=== PATIENT | male | born 1970 | race Caucasian/White ===

== ENCOUNTER 2021-07-31 07:51 | Day surgery (SDC) | payer MEDICAID ==
[2021-07-22 11:33] LABS: BASOPHILS % (AUTO) 0.2 % (0-1); EOSINOPHILS # (AUTO) 0.1 X10'3 (0-0.9); EOSINOPHILS % (AUTO) 1.4 % (0-6); LYMPHOCYTES # (AUTO) 1.9 X10'3 (1.1-4.8); LYMPHOCYTES % (AUTO) 41.6 % (21-51); MEAN CORPUSCULAR HEMOGLOBIN 31.7 PG (27.0-31.0); MEAN CORPUSCULAR HGB CONC 33.5 g/dL (33.0-36.5); MEAN CORPUSCULAR VOLUME 94.6 FL (78-98); MEAN PLATELET VOLUME 7.4 FL (7.4-10.4); MONOCYTES # (AUTO) 0.4 X10'3 (0-0.9); MONOCYTES % (AUTO) 8.8 % (2-12); NEUTROPHILS # (AUTO) 2.2 X10'3 (1.8-7.7); PRE OP HEMATOCRIT 46.8 % (42.0-52.0); PRE OP HEMOGLOBIN 15.7 g/dL (14.0-17.9); PRE OP PLATELET COUNT 227 X10'3 (140-440); RED BLOOD COUNT 4.94 X10'6 (4.70-6.10); RED CELL DISTRIBUTION WIDTH 12.7 % (11.5-14.5)
[2021-07-22 11:49] LABS: ALBUMIN 3.9 G/DL (3.4-5.0); ALBUMIN/GLOBULIN RATIO 1.2 (1.1-1.5); ALKALINE PHOSPHATASE 74 IU/L (46-116); BLOOD UREA NITROGEN 12 MG/DL (7-18); BUN/CREATININE RATIO 17.9 (5.4-32.0); CALCIUM 8.6 MG/DL (8.5-10.1); CHLORIDE 107 MMOL/L (99-107); CREATININE 0.67 MG/DL (0.60-1.10); PRE OP ALT 53 U/L (30-65); PRE OP ANION GAP 9 (8-16); PRE OP AST 26 U/L (10-37); PRE OP BILIRUB, TOTAL 0.4 MG/DL (0.0-1.0); PRE OP GLUCOSE 93 MG/DL (70-104); PRE OP POTASSIUM 4.2 MMOL/L (3.4-5.1); PRE OP SODIUM 142 MMOL/L (135-145); TOTAL CARBON DIOXIDE 26.2 MMOL/L (24-32); TOTAL PROTEIN 7.2 G/DL (6.4-8.2); eGFR > 90 ML/MIN
[2021-07-31] VITALS (22 sets, daily range): BP systolic 101–141; BP diastolic 62–96
[~2021-07-31] VITALS: Ht 175.3 cm; Wt 74.0 kg
[~2021-07-31 07:51] MED LIST: NO HOME MEDS; ceFAZolin inj. 2,000 MG in dextrose 5%-water 100 ML IV ONE; ceFOXitin 2GM-NS 100mL ADDvant 100 ML IV ONE; famotidine 20mg tablet PO ONE; ringers solution, lacted 1,000 ML IV SCH
[2021-07-31] MEDS ORDERED: ROPIVAcaine 0.5% (5mg/ml) 30ml vial ONE (09:40)
[2021-07-31] MEDS ORDERED: gelatin sponge, absorbable (Gelfoam 100) sponge TP ONE (11:23)
[2021-07-31] MEDS ORDERED: Thrombin (Bovine) 5,000 unit vial TP ONE (11:23)
[2021-07-31] MEDS ORDERED: sevoflurane 250ml liquid IH ONE (11:28)
[2021-07-31] MEDS ORDERED: dexamethasone sod phosphate 10mg/ml inj ONE (11:28)
[2021-07-31] MEDS ORDERED: fentaNYL/PF 50MCG/1 ML 2ML syringe ONE (11:33)
[2021-07-31] MEDS ORDERED: propofol inj 20 ML IV ONE (11:37)
[2021-07-31] MEDS ORDERED: ondansetron/PF 4mg/2ml inj ONE (11:37)
[2021-07-31] MEDS ORDERED: LIDOcaine 2% (20mg/ml) 5ml vial ONE (11:37)
[2021-07-31] MEDS ORDERED: ondansetron/PF 4mg/2ml inj IV PRN (12:15)
[2021-07-31] MEDS ORDERED: fentaNYL/PF 50MCG/1 ML 2ML syringe IV PRN (12:15)
[2021-07-31] MEDS ORDERED: labetalol 20mg/4ml (5mg/ml) syringe IV PRN (12:15)
[2021-07-31] MEDS ORDERED: ringers solution, lacted 1,000 ML IV SCH (12:15)
[2021-07-31] MEDS ORDERED: hydrALAZINE 20mg/ml inj. IV PRN (12:15)
[2021-07-31] MEDS ORDERED: morphine 2 MG/ML inj. syringe IV PRN (12:15)
[2021-07-31] MEDS ORDERED: vancomycin 1,000mg inj ONE (13:48)
[2021-07-31] MEDS ORDERED: ceFAZolin 1000mg inj IR ONE (13:51)
--- NOTE | 2021-07-31 14:32 | NUR ---
Received from OR via [facility], accompanied by Anesthesiologist DR CHILDRESS and report given by Anesthesiologist AND LABORATORY CHIEF. PT DROWSY, DENIES PAIN. RIGHT LEG IN BRACE W/JOCE WRAP FROM TOES TO ABOVE KNEE COVERING INCISION CDI. Addendum: 07/31/21 at 1615 by Betty Mayers RN Amended: Links added.
[2021-07-31] MEDS: morphine 4 MG/ML inj SYRINge IV PRN ×2 (14:42→17:06)
[2021-07-31] MEDS: fentaNYL/PF 50MCG/1 ML 2ML syringe IV PRN ×3 (15:06→15:11)
[2021-07-31] MEDS: diazepam inj 5 MG/ML inj. IV ONE (15:33)
--- NOTE | 2021-07-31 15:33 | NUR ---
C/O CRAMPING IN RIGHT HAMSTRING, VALIUM GIVEN
--- NOTE | 2021-07-31 18:22 | NUR ---
PT STATES PAIN IS TOLERABLE AND IMPROVED AFTER LAST PAIN MEDICATION GIVEN. PT UP AND ABLE TO PIVOT FROM BED TO W/C W/O DIFFICULTY THEN TO TOILET FOR VOID AND BACK TO W/C. PT STATES HE HAS CRUTCHES AT HOME. D/C INSTRUCTIONS GIVEN AND GONE OVER W/PT WHO VERBALIZED UNDERSTANDING. PT D/C D TO HOME VIA/ W/C TO PRIVATE VEHICLE W/O INCIDENT. Addendum: 07/31/21 at 1845 by Betty Mayers RN Amended: Links added.
== END 2021-07-31 18:22 | disposition home or self-care (01) ==
LOC: PAS 07:51
PROVIDERS: ATTEND Orthopaedic Surgery
DX: S83.511A Sprain of anterior cruciate ligament of right knee, initial encounter (principal); S83.241A Other tear of medial meniscus, current injury, right knee, initial encounter; G89.18 Other acute postprocedural pain; Z87.891 Personal history of nicotine dependence; Z79.899 Other long term (current) drug therapy; X58.XXXA Exposure to other specified factors, initial encounter; Y93.89 Activity, other specified; Y92.89 Other specified places as the place of occurrence of the external cause; Y99.8 Other external cause status
CPT/HCPCS: 29881; 29888; 36415; 64447; 76942; 80053; 82948; 85025; 93005; C1713; J0690; J1100; J2270; J2405; J2704; J2795; J3010; J3360; J3370; J3490; J7030; J7060; J7120; L1832; Z7506; Z7508; Z7512; A4215; A4618; A6449; A7000